=== PATIENT | female | born 1970 | race Caucasian/White ===

== ENCOUNTER 2019-01-28 18:41 | Emergency (ER) | payer SELFPAY ==
[~2019-01-28] VITALS: Ht 167.6 cm; Wt 75.2 kg
[~2019-01-28 18:41] MED LIST: AMOX500C2 PO; IBUP800T48 PO; OMEP40CA6 PO; ONDA4TAB8 PO
[2019-01-28 19:17] VITALS: Ht 167.6 cm; Wt 75.2 kg
--- NOTE | 2019-01-28 20:25 | ERD ---
ER Documentation Chief Complaint Chief Complaint states 2 weeks ago swallowed something since the feels something is stuck HPI This is a 48-year-old female presents emergency department with complaints of foreign body sensation to his throat for about 2 weeks. Stated that she ate beef taco 2 weeks ago. Stated that she saw her primary care physician 2 days ago for his symptoms and was advised to take [id number] antacid. Stated that her symptoms did not get better despite she went again to her primary care physician today, was told to come here to the emergency department to be evaluated, rule out foreign body to her throat. LMP: 10/2017. G4, . Denies headache, head injury, loss of consciousness, dizziness, neck pain, neck stiffness, difficulty swallowing, difficulty breathing lying flat, shoulder pain, chest pain, back pain, abdominal pain, nausea, vomiting, constipation, diarrhea, urinary symptoms, or possibility being , loss of bowel and bladder control, trauma, injury, falls, difficulty walking due to pain, numbness or tingling sensation, calf pain, recent travel, recent major surgery in the last 3 weeks, calf pain, recent long travel, recent exposure to any illness, recent antibiotic use in the last 3 months, fever, chills, seizures. Past medical history: Ovarian cyst. Surgical history: Ovarian cyst surgery. Social: Denies smoking, use of alcoholic beverages, use of illegal drugs. ROS All systems reviewed and are negative except as per history of present illness. Medications Home Meds Active Scripts Ondansetron Hcl* (Zofran*) 4 Mg Tablet, 4 MG PO Q8H PRN for NAUSEA AND/OR VOMITING, #30 TAB Prov:SHY GUILLORY 01/28/19 Omeprazole* (Omeprazole*) 40 Mg Capsule.dr, 40 MG PO DAILY, #30 CAP Prov:SHY GUILLORY 01/28/19 Ibuprofen* (Motrin*) 800 Mg Tab, 800 MG PO Q6H PRN for PAIN AND OR ELEVATED TEMP, #15 TAB Prov:SHY GUILLORY 01/28/19 Amoxicillin* (Amoxicillin*) 500 Mg Cap, 500 MG PO TID for 10 Days, CAP Prov:PASILASHY GONZÁLES F 01/28/19 Allergies Allergies: Coded Allergies: Acetaminophen (Verified Allergy, Unknown, SWELLING,RASH, 10/02/08) propoxyphene (Verified Allergy, Unknown, SWELLING,RASH, 10/30/11) PMhx/Soc History of Surgery: Yes (HEMORRHOID IN 2001, OVARY 2009) Anesthesia Reaction: No Hx Neurological Disorder: No Hx Respiratory Disorders: No Hx Cardiac Disorders: No Hx Psychiatric Problems: No Hx Miscellaneous Medical Probl: No Hx Alcohol Use: No Hx Substance Use: No Hx Tobacco Use: No Physical Exam Vitals Physical Exam Head: Atraumatic Eyes: Normal Conjunctiva ENT: Normal External Ears, Nose and Mouth. Bilateral ears: TMs are not erythematous. No bleeding. No discharge. No hearing loss. No mastoid tenderness. Nose: There is no frontal or maxillary sinus tenderness palpation. Throat: Uvula is in midline and nondisplaced. Tonsils are +1 bilaterally without redness and without exudates. Tolerating secretions. Patent airway. Speaks full and clear sentences. No tripoding. Neck: Full range of motion. No meningismus. No nuchal rigidity. No signs of meningeal irritation. Resp: Clear to auscultation bilaterally. No accessory muscle use in breathing. Cardio: Regular rate and rhythm, no murmurs Abd: Soft, non tender, non distended. Normal bowel sounds. Negative Klein sign. Skin: No petechiae or rashes. Color appears normal for ethnicity. No skin tenting. No signs of severe dehydration. Back: No midline or flank tenderness Ext: No cyanosis, or edema Neur: Awake and alert. No neurological deficits. Psych: Normal Mood and Affect Results 24 hrs Laboratory Tests Test 01/28/19 20:41 01/28/19 20:46 Urine Color YELLOW Urine Clarity CLEAR Urine pH 5.0 Urine Specific Coleman 1.014 Urine Ketones NEGATIVE mg/dL Urine Nitrite NEGATIVE mg/dL Urine Bilirubin NEGATIVE mg/dL Urine Urobilinogen NEGATIVE mg/dL Urine Leukocyte Esterase NEGATIVE Simona/ul Urine Microscopic RBC 8 /HPF Urine Microscopic WBC 1 /HPF Urine Hemoglobin 3+ mg/dL Urine Glucose NEGATIVE mg/dL Urine Total Protein NEGATIVE mg/dl POC Beta HCG, Qualitative NEGATIVE Current Medications Medications Dose Sig/Ayden Start Time Status Last (Trade) Ordered Route PRN Stop Time Admin Dose Reason Admin Ondansetron 4 mg ONCE STAT 01/28/19 DC 01/28/19 HCl (Zofran ODT 20:27 20:42 Odt) 01/28/19 20:29 Famotidine 40 mg ONCE ONCE 01/28/19 DC 01/28/19 (Pepcid) PO 20:30 20:42 01/28/19 20:31 Procedures/MDM This case was discussed with my supervising physician, Dr. Ericka Canales who agreed for me to order CT of the neck soft tissue. Diagnostic tests: POC urine : Negative. Urinalysis: Reviewed. CT of the neck soft tissue: 1. Patchy diffuse sinusitis. 2. No identifiable foreign body in the neck. 3. No visible mass or abnormal fluid collection in the low face or neck. Treatment: Zofran ODT. Pepcid p.o. P.o. challenge. Re-evaluation: No episode of emesis in the emergency department. No nuchal rigidity. No neck stiffness. No signs of meningeal irritation. No drooling. Lung sounds are clear to auscultation. No accessory muscle use in breathing. Negative Klein sign, James sign (heel jar test). Negative psoas sign. Negative Rovsing sign. No CVA tenderness. Ambulatory with steady gait and without pain to abdomen. No neurological deficit. Stated that she feels much better at this time and that she is ready to go home. Stated that she is comfortable to go home. Differential diagnosis I have low suspicion for sepsis, meningitis, mastoiditis, peritonsillar abscess, retained foreign body, aspiration pneumonia, aspiration. Final diagnosis: Throat pain. Prescription: Omeprazole. Zofran. Follow-up with PCP in the next 24-48 hours. PCP to refer patient to ENT in the next 24 to 48 hours. Come back here in the emergency department for any new symptoms or any worsening symptoms. All questions and concerns were answered. Patient and family members verbalized understanding and agreed with plan of care. Hemodynamically stable on discharge. Departure Diagnosis: Primary Impression: Sinusitis Additional Impression: Throat pain Condition: Stable Additional Instructions: Follow-up with PCP in the next 24-48 hours. PCP to refer patient to ENT in the next 24 to 48 hours. Come back here in the emergency department for any new symptoms or any worsening symptoms. SHY GUILLORY Jan 28, 2019 20:25
[2019-01-28] MEDS ORDERED: ONDANSETRON (ODT) 4 MG TAB ODT STA (20:27)
[2019-01-28] MEDS ORDERED: FAMOTIDINE 20 MG TAB PO ONE (20:30)
[2019-01-28 22:41] VITALS: BP 184/83; PULSE 72; RESP 18
== END 2019-01-28 22:41 | disposition home or self-care (01) ==
LOC: FTE 18:41
DX: J32.9 Chronic sinusitis, unspecified (principal)
CPT/HCPCS: 70490; 81001; 81025